=== PATIENT | female | born 1935 | race Caucasian/White ===

== ENCOUNTER 2016-12-27 16:21 | Emergency (ER) | payer MEDICARE, BC ==
[~2016-12-27 16:21] MED LIST: ALEVE220 M1 PO; AMBIEN5 M1 PO; BIAXIN XL500 MG PO; BIOTIN1 MG PO; BIOTIN5 MG PO; CALCIUM CITRAT1 EA18 PO; CALCIUM CITRAT1 EAC7 PO; CALCIUM CITRATE1 TA PO; CULTURELLE1 CA1 PO; DARVOCET-N 1001 TAB PO; FOLIC ACID PO; FOLIC ACID0.8 MG PO; FUROSEMIDE20 MG; FUROSEMIDE20 MG PO; HYTRIN5 MG; K-DUR20 MEQ; LASIX20 MG; LASIX20 MG PO; LASIX40 M1 PO; LASIX40 MG PO; LEVAQUIN500 MG PO; LEVAQUIN750 MG PO; MUCINEX600 M1 PO; MULTIVITAMIN1 TAB PO; MYCELEX10 MG MM; NAPROSYN250 MG PO; NORCO 5/325 TAB1 TAB PO; POTASSIUM CHLO10 MEQ; PREDNISOLONE5 MG; PREDNISONE2.5 M1 PO; PREDNISONE5 M1 PO; PREDNISONE5 MG; PREDNISONE5 MG PO; PREVACID30 MG PO; PROTONIX40 MG; SIMVASTATIN10 MG PO; TERAZOSIN5 MG; TERAZOSIN5 MG PO; TESSALON200 MG PO; TYLENOL325 MG PO; TYLENOL500 MG PO; ULTRAM50 M1 PO; ULTRAM50 MG PO; VITAMIN C PO; VITAMIN C500 M1 PO; VITAMIN D1000 UNI2 PO; ZITHROMAX250MG Z-PAK PO; ZOCOR10 MG PO
[2016-12-27 16:39] LABS: ANION GAP 11 mmol/L (0-20); BLOOD UREA NITROGEN 21 mg/dl (6-24); CALCIUM 8.9 mg/dl (8.5-10.5); CARBON DIOXIDE-VENOUS 30 mmol/L (22-32); CHLORIDE 101 mmol/l (96-110); CREATININE 1.26 mg/dl (0.50-1.10); GLUCOSE 103 mg/dL (70-110); POTASSIUM 3.3 mmol/L (3.7-5.1); SODIUM 139 mmol/L (135-145); eGFR VALUE FOR BLACK 47 mL/Min
[2016-12-27] MEDS ORDERED: ZOFRAN ODT4 MG PO (17:26)
== END 2016-12-27 17:37 ==
LOC: EDMED 16:21
PROVIDERS: Emergency Medicine
DX: E87.6 Hypokalemia (principal); E86.0 Dehydration; R11.2 Nausea with vomiting, unspecified; K21.9 Gastro-esophageal reflux disease without esophagitis; E78.5 Hyperlipidemia, unspecified
CPT/HCPCS: J2405; J7030